=== PATIENT | female | born 1980 | race Two or more races ===

== ENCOUNTER 2021-10-17 06:07 | Day surgery (SDC) | payer OTHER ==
[2021-10-17] MEDS ORDERED: ULTRACET PO (09:34)
[2021-10-17] MEDS ORDERED: MACROBID 100 M100 MG PO (09:34)
== END 2021-10-17 10:50 | disposition home or self-care (01) ==
LOC: CIR.AMB 06:07 → ADM 12-01 09:00
PROVIDERS: ATTEND Obstetrics & Gynecology Gynecology
DX: N39.3 Stress incontinence (female) (male) (principal); Z20.822 Contact with and (suspected) exposure to COVID-19
CPT/HCPCS: 57288; C1771

== ENCOUNTER 2024-05-13 05:30 | Day surgery (SDC) | payer OTHER ==
[2024-05-06 10:20] LABS: HEMATOCRIT 40.8 % (36.0-45.00); HEMOGLOBIN 13.6 g/dL (12.0-15.00); MEAN CELL VOLUME 84.3 fL (80.00-100.00); MEAN CORPUSCULAR HEMOGLOBIN 28.1 pg (27.00-32.0); MEAN CORPUSCULAR HGB CONC 33.3 g/dl (32.0-36.0); PLATELET COUNT 295 K/uL (150-450); RED BLOOD COUNT 4.83 M/uL (4.00-6.00); RED CELL DISTRIBUTION WIDTH 13.3 % (11.5-14.5)
[2024-05-06 10:27] LABS: PH,URINE 6.5 (5.0-8.0); URINE APPEARANCE Clear; URINE BILIRRUBIN Negative (NEGATIVE); URINE BLOOD Trace; URINE COLOR Yellow; URINE GLUCOSE Negative (NEGATIVE); URINE LEUKOCYTE Negative; URINE NITRATE Negative; URINE PROTEIN Negative (NEGATIVE); URINE UROBILINOGEN 0.2 E.U./dl
[2024-05-06 10:29] LABS: URINE BACTERIA 269.5 uL (0.0-1933); URINE EPITHELIAL CELLS 12.8 uL (0.0-38.8); URINE RBC 28.3 uL (0.0-20.8); URINE WBC 3.2 uL (0.0-23.2)
[2024-05-06 10:57] LABS: INR 0.95; PARTIAL THROMBOPLASTIN TIME 31.5 SECONDS (22.0-34.0)
[2024-05-06 11:15] LABS: ALBUMIN 4.1 gm/dL (3.4-5.0); BILIRUBIN TOTAL 0.66 mg/dL (0.3-1.2); CALCIUM 9.4 mg/dL (8.5-10.1); CREATININE SERUM 0.51 mg/dL (0.55-1.02); GFR 132.24; GLOBULINA 3.3 G/DL (2.4-3.5); POTASSIUM 3.86 mEq/L (3.5-5.1); TOTAL PROTEIN 7.4 gm/dL (6.4-8.2)
[~2024-05-13] VITALS: Ht 172.7 cm; Wt 62.1 kg
[~2024-05-13 05:30] MED LIST: MACROBID 100 M100 MG PO; ULTRACET PO
[2024-05-13] MEDS ORDERED: CEFAZOLIN SODIUM 1,000 MG in 0.9 % SODIUM CHLORIDE 50 ML IV ONE (07:45)
[2024-05-13] MEDS ORDERED: LIDOCAINE HCL 1%/EPINEPHRINE 20ML VIAL IJ ONE (07:45)
[2024-05-13] MEDS ORDERED: POVIDONE-IODINE 118 ML BOTT TP ONE (07:45)
[2024-05-13] MEDS ORDERED: BUPIVACAINE HCL 30 ML VIAL IJ ONE (07:45)
== END 2024-05-13 10:40 | disposition home or self-care (01) ==
LOC: CIR.AMB 05:30
PROVIDERS: ATTEND Colon & Rectal Surgery
DX: R15.9 Full incontinence of feces (principal); K92.1 Melena; N39.3 Stress incontinence (female) (male); D68.00 Von Willebrand disease, unspecified
CPT/HCPCS: 64581; 95972; C1778

== ENCOUNTER 2024-05-27 05:42 | Day surgery (SDC) | payer OTHER ==
[2024-05-27] MEDS ORDERED: DESMOPRESSIN ACETATE 4 MCG/ML AMPUL IV NR (07:00)
[2024-05-27] MEDS ORDERED: LIDOCAINE HCL 1%/EPINEPHRINE 20ML VIAL IJ ONE ×2 (07:32→08:15)
[2024-05-27] MEDS ORDERED: CEFAZOLIN SODIUM 1,000 MG VIAL ONE (07:32)
[2024-05-27] MEDS ORDERED: BUPIVACAINE HCL 0.5% 50ML VIAL ONE (07:33)
[2024-05-27] MEDS ORDERED: POVIDONE-IODINE 118 ML BOTT TOP ONE (07:36)
[2024-05-27] MEDS ORDERED: CEFAZOLIN SODIUM 1,000 MG VIAL IV ONE (08:15)
[2024-05-27] MEDS ORDERED: BUPIVACAINE HCL/PF 0.25% 50 ML VIAL IJ ONE (08:15)
== END 2024-05-27 11:25 | disposition home or self-care (01) ==
LOC: U 05:42 → CIR.AMB 05:42
PROVIDERS: ATTEND Colon & Rectal Surgery
DX: R15.9 Full incontinence of feces (principal); K92.1 Melena; D68.00 Von Willebrand disease, unspecified
CPT/HCPCS: 64590; 95972; C1767